=== PATIENT | female | born 1975 | race Caucasian/White ===

== ENCOUNTER 2023-06-13 08:28 | Outpatient (REF) | payer OTHER, SELFPAY ==
[2023-06-13 10:54] LABS: MANUAL DIFF FLAG NO
[2023-06-13 11:01] LABS: Basophils Percent Auto 0.7 % (0-2); Eosinophils Absolute Auto 0.2 X10*3/uL (0.0-0.4); Hematocrit 44.4 % (37.0-47.0); Hemoglobin 14.9 g/dl (12.0-16.0); Imm Gran Abs Auto 0.02 X10*3/uL (0.00-0.03); Imm Gran Pct Auto 0.4 % (0.0-0.4); Lymphocytes Absolute Auto 1.7 X10*3/uL (1.2-4.9); Lymphocytes Percent Auto 29.1 % (20-40); Mean Corpuscular HGB Conc 33.6 g/dl (31.0-35.0); Mean Corpuscular Hemoglobin 29.9 pg (27.0-33.0); Mean Corpuscular Volume 89.2 fL (80.0-98.0); Mean Platelet Volume 10.6 fL (9.4-12.3); Monocytes Absolute Auto 0.3 X10*3/uL (0.1-1.2); Monocytes Percent Auto 5.8 % (2-11); Neutrophils Absolute Auto 3.5 x10*3/uL (2.0-8.3); Platelet Count 246 X10*3/uL (160-400); Red Blood Count 4.98 X10*6/uL (4.20-5.50); Red Cell Distribution Width 11.9 % (11.0-16.0); White Blood Count 5.7 X10*3/uL (4.8-10.8)
[2023-06-13 11:07] LABS: Estimated Average Glucose 103 mg/dL; Hemoglobin A1c % 5.2 %
[2023-06-13 11:33] LABS: Alanine Aminotransferase 16 U/L (0-31); Anion Gap 12 (12-20); Aspartate Amino Transferase 13 U/L (5-31); Blood Urea Nitrogen 13 mg/dL (9-16); Calcium 9.3 mg/dL (8.4-10.2); Carbon Dioxide 19 mmol/L (22-29); Chloride 112 mmol/L (96-108); Cholesterol 185 mg/dL; Estimated Glomerular Filt Rate > 60; Glucose Random 110 mg/dL (60-115); HDL Cholesterol 41 mg/dL; LDL Cholesterol Calculated 122 mg/dl; Potassium 3.8 mmol/L (3.3-5.1); Sodium 139 mmol/L (135-145); Triglycerides 110 mg/dL
[2023-06-13 11:49] LABS: Free T4 (Free Thyroxine) 0.76 ng/dL (0.71-1.85); Thyroid Stimulating Hormone 2.37 uIU/mL (0.32-4.0)
== END 2023-06-13 08:29 | disposition home or self-care (01) ==
LOC: HO.10HDL 08:28
PROVIDERS: Visit Provider Nurse Practitioner
DX: Z00.00 Encounter for general adult medical examination without abnormal findings (principal); G93.2 Benign intracranial hypertension; E66.01 Morbid (severe) obesity due to excess calories; R53.82 Chronic fatigue, unspecified
CPT/HCPCS: 36415; 80048; 80061; 83036; 84439; 84443; 84450; 84460; 85025

== ENCOUNTER → 2023-09-29 08:00 | Outpatient (BNV) | payer OTHER, SELFPAY | PROVIDERS: PCP Nurse Practitioner; Visit Provider Radiology Diagnostic Radiology | DX: Z12.31 Encounter for screening mammogram for malignant neoplasm of breast (principal) | CPT/HCPCS: 77063; 77067 ==

== ENCOUNTER 2023-09-29 08:03 | Outpatient (REF) | payer OTHER, SELFPAY | END 2023-09-29 08:04 | disposition home or self-care (01) | LOC: HO.MAMMO 08:03 | PROVIDERS: PCP Nurse Practitioner; Visit Provider Nurse Practitioner | DX: Z12.31 Encounter for screening mammogram for malignant neoplasm of breast (principal) | CPT/HCPCS: 77063; 77067 ==

== ENCOUNTER 2023-10-13 12:19 | Outpatient (AMB) | payer OTHER, SELFPAY ==
--- NOTE | 2023-10-13 12:20 | MHC.OFFVIS ---
Intake Intake Visit Reasons: right bicrp inj HPI right bicrp inj HPI Details 47-year-old female who presents today to the office for a right bicipital tendon injection. Denies any recent cough, cold, infection, fever or other significant changes in medical history since last office visit. Review of Systems Const All systems reviewed & are unremarkable except as noted in HPI and below Physical Exam General: Appears afebrile. Alert and oriented. Mood and affect appropriate. Follows and participates in conversation appropriately. Respiratory effort is unlabored. Able to transition from sit to stand unassisted. Ambulates with bilaterally normal heel strike and toe off. Office Procedures Joint Injection/Drain Joint Injection/Drain Details: Right Bicipital tendon injection, ultrasound guided Primary Site: right shoulder Prep: site was prepped using sterile technique Injected: Kenalog (25 mg), with 3 mL of (0.25% ropivacaine) and other (bicipital tendons) Approach Used: anterior (under ultrasound guidance) Procedure: The patient tolerated the procedure well Coding Details: An ultrasound image of the injection was taken and stored in the permanent record. 09926 - Bicipital Groove Injection (right, ultrasound guided) Procedure code (CPT) selection complete Results Reviewed Results Reviewed: No imaging is available for review. Assessment & Plan Assessment & Plan (1) Bicipital tendinitis: Code(s): M75.20 - Bicipital tendinitis, unspecified shoulder Plan Patient is status post right bicipital tendon injection, ultrasound guided. Patient tolerated procedure well and was discharged home in stable condition with discharge instructions. All questions were answered. Follow-up as needed. Scribed for Dr. Liriano by Leonid Lee medical instrument cable fabricator, on 10/13/2023. I, Dr. Liriano, have personally reviewed and agree with the information entered by the scribe. Coding Level of Care Code Procedure Only Diagnoses Bicipital tendinitis M75.20 CPT Codes Coding - Joint 1: 52060 - Bicipital Groove Injection ([id number])
== END 2023-10-13 12:32 | disposition home or self-care (01) ==
LOC: HO.PMC 12:19
PROVIDERS: PCP Nurse Practitioner; Visit Provider Internal Medicine
DX: M75.21 Bicipital tendinitis, right shoulder (principal)
CPT/HCPCS: 20550

== ENCOUNTER → 2023-10-13 12:19 | Outpatient (BNVA) | payer OTHER, SELFPAY | PROVIDERS: PCP Nurse Practitioner; Visit Provider Internal Medicine | DX: M75.21 Bicipital tendinitis, right shoulder (principal) | CPT/HCPCS: 20550; J0665; J3301 ==

== ENCOUNTER 2024-03-06 12:47 | Outpatient (REF) | payer OTHER, SELFPAY ==
--- NOTE | ~2024-03-06 | US_ITS ---
EXAMINATION: US LOWER EXTREMITY VENOUS (REFLUX EXAM), BILATERAL CLINICAL INDICATION: Chronic venous insufficiency with lower extremity varicose veins with pain and inflammation COMPARISON: None. TECHNIQUE: Color flow triplex imaging and compression Doppler was performed to evaluate both the deep and the superficial systems bilaterally. To evaluate the superficial system, the examination was performed in the upright position. Color-flow Doppler ultrasound and compression ultrasound were utilized. In addition, maneuvers were utilized to demonstrate reflux. FINDINGS: 1. DEEP VENOUS ULTRASOUND OF THE RIGHT LOWER EXTREMITY: Common Femoral Vein: Compressible, normal respiratory variation and augmented flow. Femoral Vein: Compressible, normal color flow and augmentation. Popliteal Vein: Compressible, normal augmentation. Deep Reflux: There is no evidence of reflux in the deep system in either the common femoral vein, superficial femoral or the popliteal vein. There is no evidence of a Morin's cyst. 2. SUPERFICIAL ULTRASOUND WITH DOPPLER OF RIGHT LOWER EXTREMITY: GREAT SAPHENOUS VEIN: Saphenofemoral Junction: 0.7 cm; Reflux: 1632 ms Proximal Thigh: 0.6 cm; Reflux: 1995 ms Mid Thigh: 0.6 cm; Reflux: 1604 ms Above Knee: 0.6 cm; Reflux: 1720 ms At Knee: 0.5 cm; Reflux: 1984 ms Below Knee: 1.0 cm; Reflux: 1592 ms Mid Calf: 0.4 cm; Reflux: 1564 ms Ankle: 0.3 cm; Reflux: 924 ms DUPLICATED MEDIAL GREAT SAPHENOUS VEIN: Diameter: None imaged Reflux: NA DUPLICATED LATERAL GREAT SAPHENOUS VEIN: Diameter: 0.3 cm Reflux: None SMALL SAPHENOUS VEIN: Saphenopopliteal Junction: 0.3 cm; Reflux: 0 ms Proximal: 0.2 cm; Reflux: 0 ms Distal: 0.3 cm; Reflux: 0 ms VEIN OF GIACOMINI: Size: NA Reflux: NA PERFORATORS: Location: Mid calf Size: 0.3 cm Reflux: 1744 ms VARICOSITIES: Location: Proximal thigh and proximal calf Size: 0.3 to 0.4 cm Reflux: Ranging from 1316 ms to 1516 ms 3. DEEP VENOUS ULTRASOUND OF THE LEFT LOWER EXTREMITY: Common Femoral Vein: Compressible, normal respiratory variation and augmented flow. Femoral Vein: Compressible, normal color flow and augmentation. Popliteal Vein: Compressible, normal augmentation. Deep Reflux: There is no evidence of reflux in the deep system in either the common femoral vein, superficial femoral or the popliteal vein. There is no evidence of a Morin's cyst. 4. SUPERFICIAL ULTRASOUND WITH DOPPLER OF LEFT LOWER EXTREMITY: GREAT SAPHENOUS VEIN: Saphenofemoral Junction: 0.9 cm; Reflux: 0 ms Proximal Thigh: 0.5 cm; Reflux: 0 ms Mid Thigh: 0.5 cm; Reflux: 1508 ms Above Knee: 0.5 cm; Reflux: 1660 ms At Knee: 0.5 cm; Reflux: 0 ms Below Knee: 0.4 cm; Reflux: 1560 ms Mid Calf: 0.3 cm; Reflux: 1556 ms Ankle: 0.4 cm; Reflux: 0 ms DUPLICATED MEDIAL GREAT SAPHENOUS VEIN: Diameter: None imaged Reflux: NA DUPLICATED LATERAL GREAT SAPHENOUS VEIN: Diameter: 0.3 cm Reflux: None SMALL SAPHENOUS VEIN: Saphenopopliteal Junction: 0.5 cm; Reflux: 0 ms Proximal: 0.4 cm; Reflux: 0 ms Distal: 0.3 cm; Reflux: 0 ms VEIN OF GIACOMINI: Size: NA Reflux: NA PERFORATORS: Location: Proximal and mid calf Size: 0.3 to 0.4 cm Reflux: None VARICOSITIES: Location: Distal thigh, knee and proximal calf off the great saphenous vein Size: 0.3 to 0.8 cm Reflux: Ranging from 1508 ms to 2196 ms US/US venous duplex LE BI IMPRESSION: Right: Severe reflux throughout the right great saphenous vein with multiple branching varicosities as described above Left: Severe reflux within the great saphenous vein with multiple branching varicosities as described above
== END 2024-03-06 12:48 | disposition home or self-care (01) ==
LOC: HO.US 12:47
PROVIDERS: PCP Nurse Practitioner; Visit Provider Nurse Practitioner Family
DX: I83.93 Asymptomatic varicose veins of bilateral lower extremities (principal)
CPT/HCPCS: 93970

== ENCOUNTER 2024-03-28 13:16 | Outpatient (AMB) | payer OTHER, SELFPAY ==
--- NOTE | 2024-03-28 13:20 | A.OFFVIS_ITS ---
Intake Visit Reasons: Varicose veins of lower extremity with inflammation, bilateral Intake Note: Patient presents for bilateral varicose veins, worse on the left. Has minimal swelling. No pain in either leg. Accompanied by: Self / Same As Patient Allergies No Known Allergies Allergy (Verified 03/28/24 13:21) HPI Comments Details: Very pleasant 48-year-old female patient presents for painful varicose veins. Complaints include pain over varicosities, swelling of lower extremities, cramping, fatigue, and heaviness of the lower extremities. It has been affecting there daily activities including . It is noted more so in left leg. She has this left medial thigh varicosity which has been a source of pain and discomfort for her. Patient denies any previous venous surgery or injections. Patient denies any history of DVT/ PE. Patient denies any history of phlebitis. Trial of compression includes - prescription compression They now present for vascular evaluation regarding their varicose veins. Review of Systems Const Reports as per HPI ENT Reports no additional complaints Card Denies chest pain, Denies chest pain at rest and Denies chest pain with activity Resp Denies chest congestion and Denies cough GI Reports no additional complaints Musc Details: pain over varicosities, aching of lower extremities, swelling, cramping, heav iness and tiredness, itching Denies abnormal gait Skin/Breast Reports pruritus and Denies wounds Neuro Reports no additional complaints and Denies abnormal gait Psych Denies no additional complaints Physical Exam Const General: cooperative, healthy appearing and comfortable Orientation/consciousness: oriented to person, oriented to place and oriented to time Neck Carotids: no bruits Chest Chest palpation & inspection: normal inspection of the chest and normal palpation of entire chest wall Resp Effort & Inspection: normal respiratory effort and able to speak in complete sentences Cardio Rate: regular rate Heart sounds: S1 normal heart sound present and S2 normal heart sound present Peripheral pulses: Peripheral pulses 2+ throughout GI Inspection: Yes normal to inspection Skin Other: +2 edema, large rope-like varicosities greater than 4 mm left medial thigh CEAP Classification C4 - skin color changes Ep - Etiology Primary As - superficial veins P - reflux General skin exam: dry skin Neuro General: oriented to person, oriented to place and oriented to time Extrem Right lower extremity: full ROM, normal capillary refill and edema Left lower extremity: full ROM, normal capillary refill and edema Psych Mental Status: mental status grossly normal Results Reviewed Results Reviewed: Brief summary of venous insufficiency testing is as follows: right great saphenous vein: Positive right small saphenous vein: negative right accessory vein: none present left great saphenous vein: Positive left small saphenous vein: negative left accessory vein: none present Please note there is no evidence of any venous aneurysms or significant tortuosity Assessment & Plan Assessment & Plan (1) Varicose veins of both lower extremities with inflammation: Code(s): I83.11 - Varicose veins of right lower extremity with inflammation; I83.12 - V aricose veins of left lower extremity with inflammation Plan: This patient has varicose veins with inflammation. They continue to be a source of discomfort for the patient. The patient has tried conservative treatment with compression, leg elevation and exercise program for over 3 months time. They have been compliant with all treatment. This has provided minimal relief for the patient. I do not anticipate this course of treatment will alter the underlying etiology. The patient has been scheduled for lower extremity venous treatment inclusive of --- left great saphenous vein Cyanoacralate ablation. Risks, benefits, and complications of this procedure has been discussed in detail with the patient including but not limited to bleeding, infection, and the development of a DVT. The patient has demonstrated a clear understanding and has consented. We will schedule the patient as soon as possible. Thank you for allowing us to participate in this patient's care. If there are any questions or concerns please do not hesitate to contact us. Medications: Discontinued acyclovir Discontinued Reason: Patient no longer taking 800 mg PO BID 30 tabs 1RF benzonatate Discontinued Reason: Patient no longer taking 100 mg PO BID 14 days PRN 28 caps 0RF cough azithromycin Discontinued Reason: Patient no longer taking 500 mg PO DAILY 14 days 14 tabs 0RF prednisone Discontinued Reason: Patient Refused 20 mg PO BID 5 days 10 tabs 1RF Coding Level of Care Code New Pt Level 4 (27018) Diagnoses Varicose veins of both lower extremities with inflammation I83.11; I83.12 Varicose Veins Reports pruritus
== END 2024-03-28 13:54 | disposition home or self-care (01) ==
PROVIDERS: PCP Nurse Practitioner; Visit Provider Surgery Vascular Surgery
DX: I83.11 Varicose veins of right lower extremity with inflammation (principal); I83.12 Varicose veins of left lower extremity with inflammation
CPT/HCPCS: 99204

== ENCOUNTER → 2024-03-28 13:16 | Outpatient (BNVA) | payer OTHER, SELFPAY | PROVIDERS: PCP Nurse Practitioner; Visit Provider Surgery Vascular Surgery ==

== ENCOUNTER 2024-04-10 12:58 | Outpatient (AMB) | payer OTHER, SELFPAY ==
--- NOTE | 2024-04-10 13:14 | MHC.OFFVIS ---
Intake Visit Reasons: Left shoulder injection Allergies No Known Allergies Allergy (Verified 03/28/24 13:21) HPI HPI Left shoulder injection: Details: 48-year-old female who presents to the office for left shoulder injection She presents with the left arm pain, which is similar to the one that she had on the right few months ago. She is interested in a bicipital tendon injection on the left side. Denies any recent cough, cold, infection, fever or other significant changes in medical history since last office visit. Review of Systems Const All systems reviewed & are unremarkable except as noted in HPI and below Physical Exam General: Appears afebrile. Alert and oriented. Mood and affect appropriate. Follows and participates in conversation appropriately. Respiratory effort is unlabored. Able to transition from sit to stand unassisted. Pain is worse with forearm supination and flexion of the arm. Office Procedures Joint Injection/Drain Joint Injection/Drain Primary Site: left shoulder (bicipital tendon) Prep: site was prepped using sterile technique Injected: 40 mg of, Kenalog, with 3 mL of (0.5% ropivacaine) and other (bicipital groove) Approach Used: anterior (under ultrasound guidance) Procedure: The patient tolerated the procedure well Coding 32941 - Bicipital Groove Injection Procedure code (CPT) selection complete Results Reviewed Results Reviewed: No imaging is available for review Assessment & Plan Assessment & Plan (1) Bicipital tendinitis: Code(s): M75.20 - Bicipital tendinitis, unspecified shoulder Category: Medical Plan Patient is status post bicipital groove injection. Patient tolerated procedure well and was discharged home in stable condition with discharge instructions. All questions were answered. Scribed for Dr. Liriano by Marbella Kevin health care / medical job titles, on 04/10/2024. I, Dr. Liriano, have personally reviewed and agree with the information entered by the scribe. Coding Level of Care Code Est Pt Level 3 (75115) Diagnoses Bicipital tendinitis M75.20 CPT Codes Coding - Joint 1: 38445 - Bicipital Groove Injection ([id number])
== END 2024-04-10 13:10 | disposition home or self-care (01) ==
LOC: HO.PMC 12:58
PROVIDERS: PCP Nurse Practitioner; Visit Provider Internal Medicine
DX: M75.22 Bicipital tendinitis, left shoulder (principal)
CPT/HCPCS: 20550

== ENCOUNTER → 2024-04-10 12:58 | Outpatient (BNVA) | payer OTHER, SELFPAY | PROVIDERS: PCP Nurse Practitioner; Visit Provider Internal Medicine | DX: M75.22 Bicipital tendinitis, left shoulder (principal) | CPT/HCPCS: 20550; J2795; J3301 ==

== ENCOUNTER 2024-04-26 12:32 | Outpatient (AMB) | payer OTHER, SELFPAY ==
--- NOTE | 2024-04-26 13:27 | MHC.OFFVIS ---
Intake Visit Reasons: Left GSV Venaseal Accompanied by: Self / Same As Patient Allergies No Known Allergies Allergy (Verified 04/26/24 13:27) Office Procedures Vascular Office Procedure Details Details: Diagnosis: Left Leg varicose veins with inflammation Procedure: Endovenous Ablation of the left Great Saphenous Vein with VenaSeal Closure System Anesthesia: Local infiltration 5 cc, Estimated Blood Loss: min Specimen: none Duplex ultrasound was used to map out the insufficient saphenous vein, and access was determined and marked on the overlying skin. The depth and diameter of the vein(s) to be treated was documented. The patient was placed supine on the procedure table and the leg was prepped and draped using sterile technique. Ultasound guidance was again used to localize the access site. 1% lidocaine was injected as a local anesthetic in the subcutaneous tissues at the target location in the GSV in the lower leg. Using ultrasound guidance, access was gained at this location with the 19 gauge thin walled access needle and followed by introduction of a short guidewire, location confirmed with ultrasound. A small, 3 mm incision was made at the access site to allow for introduction and placement of the 7 Fr x7cm introducer/dilator. The dilator and guidewire were removed. The 0.035 guidewire from the VenaSeal kit was then introduced and positioned at the saphenofemoral junction using ultrasound guidance. The 80 cm 7 Fr introducer sheath/dilator was positioned 5cm from the saphenofemoral junction. The guidewire and dilator were removed, and the remaining sheath was flushed with sterile saline, with the syringe remaining in place prior to the next steps. The cyanoacrylate adhesive was precisely primed into the 5 F delivery catheter and this catheter/syringe combination was attached within the dispenser gun. This assembly was introduced through the 7F sheath and positioned 5 cm caudal of the saphenofemoral junction under ultrasound guidance. The steps from the IFU were followed for dispensing amounts, locations and compression times, 2 aliquots proximally with 3 minutes of compression, and 1 aliquot every 3 cm distally with 30 sec of compression along the course of the vessel. Following the last injection and compression sequence, the catheter and introducer sheath were pulled out from the access site. Hemostasis was achieved with manual compression and an adhesive bandage was applied to the incision. Ultrasound confirmed complete coaptation and closure of the treated segments of the GSV, and the absence of any DVT at the saphenofemoral junction. Treatment time was approximately 6 minutes and the vein length treated was 40 cm. The drapes were removed and the patient cleaned and prepared for discharge. Post op ultrasound check is scheduled for 48-72 hours and the patient was given written post-op instructions. 29424 - Endoven Ther Chem Adhes 1st All charges added?: Procedure code (CPT) selection complete Assessment & Plan Assessment & Plan (1) Varicose veins of left lower extremity with inflammation: Comment: 04/26/2024 - left great saphenous vein Cyanoacralate ablation Code(s): I83.12 - Varicose veins of left lower extremity with inflammation Category: Medical Plan: See op note Coding Level of Care Code Procedure Only Diagnoses Varicose veins of left lower extremity with inflammation I83.12 CPT Codes Details - Vascular 3: 99389 - Endoven Ther Chem Adhes 1st ([id number])
== END 2024-04-26 13:23 | disposition home or self-care (01) ==
PROVIDERS: PCP Nurse Practitioner; Visit Provider Surgery Vascular Surgery
DX: I83.12 Varicose veins of left lower extremity with inflammation (principal)
CPT/HCPCS: 36482

== ENCOUNTER → 2024-04-26 12:32 | Outpatient (BNVA) | payer OTHER, SELFPAY | PROVIDERS: PCP Nurse Practitioner; Visit Provider Surgery Vascular Surgery | DX: I83.12 Varicose veins of left lower extremity with inflammation (principal) | CPT/HCPCS: 36482 ==

== ENCOUNTER 2024-04-29 11:30 | Outpatient (REF) | payer OTHER, SELFPAY ==
--- NOTE | ~2024-04-29 | US_ITS ---
EXAMINATION: TRIPLEX SCANNING OF LEFT LOWER EXTREMITY; SUPERFICIAL ULTRASOUND WITH DOPPLER OF LEFT LOWER EXTREMITY CLINICAL INFORMATION: Status post Venaseal of the left great saphenous vein COMPARISON: Ultrasound from 03/06/2024. TECHNIQUE: Color flow triplex imaging and compression Doppler were performed as well as superficial ultrasound with Doppler. FINDINGS: LEFT LOWER EXTREMITY DEEP VENOUS SYSTEM: Respiratory variation, normal compression and augmented flow are noted throughout the lower extremity. The visualized common femoral vein, femoral vein, profunda femoral vein, popliteal vein and the calf veins show no evidence of deep venous thrombosis. There is no evidence of Morin's cyst. SUPERFICIAL VENOUS SYSTEM: The great saphenous vein is occluded from the access site to 7.1 cm before the saphenofemoral junction. There is no extension of thrombus into the deep system. US/US venous duplex LE LT IMPRESSION: 1. No evidence of DVT. 2. Excellent appearance status post ablation of the left great saphenous vein.
== END 2024-04-29 11:31 | disposition home or self-care (01) ==
LOC: HO.HMGCX 11:30
PROVIDERS: PCP Nurse Practitioner; Visit Provider Surgery Vascular Surgery
DX: M79.605 Pain in left leg (principal)
CPT/HCPCS: 93971

== ENCOUNTER 2024-05-09 13:44 | Outpatient (AMB) | payer OTHER, SELFPAY ==
--- NOTE | 2024-05-09 13:55 | A.OFFVIS_ITS ---
Intake Visit Reasons: 2 week follow up Left GSV Venaseal 04/26/24 Intake Note: 2 week follow up Left GSV Venaseal 04/26/24, pt states some itching post- procedurally and some discomfort after the ultrasound. Right LE has swelling, discomfort and fatigue Accompanied by: Self / Same As Patient Allergies No Known Allergies Allergy (Verified 05/09/24 14:01) HPI HPI 2 week follow up Left GSV Venaseal 04/26/24: Details: Very pleasant 48-year-old female presents for follow-up status post left great saphenous vein Cyanoacralate ablation. In general appears to be doing relatively well. She did have some mild postprocedure itching. She now presents for routine postprocedure follow-up. Of note postprocedure ultrasound was negative for DVT. She is concerned about her right lower extremity which has also been a source discomfort for her. Review of Systems Const Reports as per HPI ENT Reports no additional complaints Card Denies chest pain, Denies chest pain at rest and Denies chest pain with activity Resp Denies chest congestion and Denies cough GI Reports no additional complaints Musc Details: pain over varicosities, aching of lower extremities, swelling, cramping, heaviness and tiredness, itching Denies abnormal gait Skin/Breast Reports pruritus and Denies wounds Neuro Reports no additional complaints and Denies abnormal gait Psych Denies no additional complaints Physical Exam Const General: cooperative, healthy appearing and comfortable Orientation/consciousness: oriented to person, oriented to place and oriented to time Neck Carotids: no bruits Chest Chest palpation & inspection: normal inspection of the chest and normal palpatio n of entire chest wall Resp Effort & Inspection: normal respiratory effort and able to speak in complete sentences Cardio Rate: regular rate Heart sounds: S1 normal heart sound present and S2 normal heart sound present Peripheral pulses: Peripheral pulses 2+ throughout GI Inspection: Yes normal to inspection Skin Other: +2 edema, CEAP Classification C4 - skin color changes Ep - Etiology Primary As - superficial veins P - reflux General skin exam: dry skin Neuro General: oriented to person, oriented to place and oriented to time Extrem Right lower extremity: full ROM, normal capillary refill and edema Left lower extremity: full ROM, normal capillary refill and edema Psych Mental Status: mental status grossly normal Results Reviewed Results Reviewed: Brief summary of venous insufficiency testing is as follows: right great saphenous vein: Positive right small saphenous vein: negative right accessory vein: none present left great saphenous vein: Ablated left small saphenous vein: negative left accessory vein: none present Please note there is no evidence of any venous aneurysms or significant tortuosity Assessment & Plan Assessment & Plan (1) Varicose veins of left lower extremity with inflammation: Comment: 04/26/2024 - left great saphenous vein Cyanoacralate ablation Code(s): I83.12 - Varicose veins of left lower extremity with inflammation Category: Medical Plan: Did well. Mild reaction so will treat right side with Radiofrequency ablation (2) Varicose veins of right lower extremity with inflammation: Code(s): I83.11 - Varicose veins of right lower extremity with inflammation Category: Medical Plan: This patient has varicose veins with inflammation. They continue to be a source of discomfort for the patient. The patient has tried conservative treatment with compression, leg elevation and exercise program for over 3 months time. They have been compliant with all treatment. This has provided minimal relief for the patient. I do not anticipate this course of treatment will alter the underlying etiology. The patient has been scheduled for lower extremity venous treatment inclusive of --- right great saphenous vein radiofrequency ablation. Risks, benefits, and complications of this procedure has been discussed in detail with the patient including but not limited to bleeding, infection, and the development of a DVT. The patient has demonstrated a clear understanding and has consented. We will schedule the patient as soon as possible. Thank you for allowing us to participate in this patient's care. If there are any questions or concerns please do not hesitate to contact us. Coding Level of Care Code Est Pt Level 4 (28780) Diagnoses Varicose veins of left lower extremity with inflammation I83.12 Varicose veins of right lower extremity with inflammation I83.11
== END 2024-05-09 14:35 | disposition home or self-care (01) ==
PROVIDERS: PCP Nurse Practitioner; Visit Provider Surgery Vascular Surgery
DX: I83.12 Varicose veins of left lower extremity with inflammation (principal); I83.11 Varicose veins of right lower extremity with inflammation
CPT/HCPCS: 99214

== ENCOUNTER → 2024-05-09 13:44 | Outpatient (BNVA) | payer OTHER, SELFPAY | PROVIDERS: PCP Nurse Practitioner; Visit Provider Surgery Vascular Surgery ==

== ENCOUNTER 2024-07-05 12:19 | Outpatient (AMB) | payer OTHER, SELFPAY ==
--- NOTE | 2024-07-05 12:56 | MHC.OFFVIS ---
Intake Visit Reasons: Right GSV RFA Allergies No Known Allergies Allergy (Verified 07/05/24 12:57) Office Procedures Vascular Office Procedure Details Details: Diagnosis: Varicose veins with inflammation of right leg Procedure: Endovenous radiofrequency ablation of the right great saphenous vein(s) of the lower extremity. Anesthesia: Local infiltration 5 cc, Tumescent 450 cc. Estimated Blood Loss: minimal Specimen: Varicose veins The patient was transferred to the procedure suite and the insufficient saphenous vein was mapped by ultrasound and diagrammed on the overlying skin. The depth and diameter of the vein(s) to be treated was documented. The varicose tributary veins and suitable access sites were identified and mapped as well. The patient was then positioned supine on the procedure table. The affected limb was prepped and draped in the usual sterile fashion. The RF catheter was placed on the sterile field, flushed and wiped down, prepared, and connected by a sterile cable. The patient was placed in supine position and local anesthesia was instilled in the skin overlying the access site. A skin incision was made overlying the identified and mapped great saphenous vein entry site. The vein was accessed using ultrasound guidance and the Seldinger technique, a guide wire was introduced through the needle, which was then exchanged over the guide wire for a 6F sheath, which was secured in place. The guide wire was removed and the sheath was flushed. The RF catheter was placed into the vein through the sheath and preferentially, imaging was used to place the catheter tip just inferior to the superficial epigastric vein to preserve normal physiological flow in that vein. Additionally, it was confirmed by ultrasound guidance that the catheter tip was also placed a minimum of 1.5cm distal to the saphenofemoral junction. After the RF catheter position was verified by ultrasound, tumescent anesthesia was infiltrated, under ultrasound guidance, precisely into the perivenous compartment along the entire length of vein from the entry site to the saphenofemoral junction until a halo of fluid was noted around the vein. The patient was then placed in supine position to further exsanguinate the superficial venous system. After RF catheter position was again confirmed with ultrasound imaging, and under direct external compression along the length of the heating element, RF energy was applied. The vein was segmentally ablated by heating a 8 cm segment and then indexing the catheter forward by 7.5 cm until the treatment length is completed. Device temperature was maintained at 120 plus or minus 5 degrees C with an initial power level of 40W dropping to below 20W for each treatment. Total vein length treated 40 cm Total cycles of RF 7. Repeat ultrasound of the saphenous vein was performed, confirming successful treatment. The catheter and sheath were withdrawn and hemostasis established with direct pressure. After assuring hemostasis, the skin incision over the saphenous vein was closed with a bandage and a compression wrap, and/ or graduated compression stocking was applied from the level of the foot to the most proximal level of the thigh. 02096 - Endovenous RF, 1st Vein All charges added?: Procedure code (CPT) selection complete Assessment & Plan Assessment & Plan (1) Varicose veins of right lower extremity with inflammation: Comment: 07/05/2024 - right great saphenous vein radiofrequency ablation Code(s): I83.11 - Varicose veins of right lower extremity with inflammation Category: Medical Plan: See op note Coding Level of Care Code Procedure Only Diagnoses Varicose veins of right lower extremity with inflammation I83.11 CPT Codes Details - Vascular 1: 88766 - Endovenous RF, 1st Vein ([id number])
== END 2024-07-05 14:02 | disposition home or self-care (01) ==
PROVIDERS: PCP Nurse Practitioner; Visit Provider Surgery Vascular Surgery
DX: I83.11 Varicose veins of right lower extremity with inflammation (principal)
CPT/HCPCS: 36475

== ENCOUNTER → 2024-07-05 12:19 | Outpatient (BNVA) | payer OTHER, SELFPAY | PROVIDERS: PCP Nurse Practitioner; Visit Provider Surgery Vascular Surgery | DX: I83.11 Varicose veins of right lower extremity with inflammation (principal) | CPT/HCPCS: 36475 ==

== ENCOUNTER 2024-07-08 14:57 | Outpatient (REF) | payer OTHER, SELFPAY ==
--- NOTE | ~2024-07-08 | US_ITS ---
EXAMINATION: US VENOUS ULTRASOUND WITH DOPPLER LOWER EXTREMITY, RIGHT CLINICAL INFORMATION: M79.604 - Pain in right leg. Please R/O DVT Right LE s/p Right GSV RFA 07/05/2024. Please schedule per protocol on 07/05/24 COMPARISON: 03/06/2024. TECHNIQUE: Ultrasound of the deep veins is performed from the hip to the calf with compression sonography and color and pulse Doppler assessment. Spectral analysis with color-flow imaging is performed. FINDINGS: There is normal venous compression and respiratory variation and augmented flow. The visualized common femoral vein, superficial femoral vein, profunda femoral vein, popliteal vein, and the trifurcation region shows no evidence of deep venous thrombosis. Postablation changes are seen in the great saphenous vein up to 7.5 cm from the SFJ. US/US venous duplex LE RT IMPRESSION: No DVT demonstrated in the right lower extremity. Postablation changes great saphenous vein as above. Electronically signed by: Reid Szymanski MD 07/10/2024 11:56 AM EDT
== END 2024-07-08 14:58 | disposition home or self-care (01) ==
LOC: HO.US 14:57
PROVIDERS: PCP Nurse Practitioner; Visit Provider Surgery Vascular Surgery
DX: M79.604 Pain in right leg (principal)
CPT/HCPCS: 93971

== ENCOUNTER 2025-02-27 14:57 | Outpatient (AMB) | payer OTHER, SELFPAY ==
[2025-02-27 14:57] VITALS: BP 138/70; PULSE 84; O2SAT 98
--- NOTE | 2025-02-27 14:57 | MHC.OFFVIS ---
Vital Signs 02/27/25 14:57 Height 5 ft 10 in BP 138/70 Blood Pressure Location Lt brachial Position Sitting Pulse 84 Pulse Source Pulse Oximeter Pulse Oximetry (%) 98 Oxygen Delivery Method Room Air Intake Visit Reasons: headache Intake Note: Pain today 12/23 Acute Care Assistant Required: No Accompanied by: Self / Same As Patient Allergies No Known Allergies Allergy (Verified 02/27/25 14:58) HPI Comments Details: The patient is a 49-year-old female presenting with chronic headache management needs, specifically migraines and tension-type headaches. She reports a longstanding history, with onset during her teenage years. Her headaches, characterized by a pounding and throbbing quality, can occur with nausea and be influenced by stress, weather changes, or work-related factors. The migraines typically manifest in the frontal region and occasionally cause visual disturbances such as floaters and tunnel vision. She has a background of increased intracranial hypertension, managed with Diamox. Her treatment approach includes various medications, with DHE nasal spray reserved for unresponsive episodes. Her condition impacts her daily activities significantly, affecting her sleep, ADLs, work and living quality. Despite seeking past neurological interventions, including occipital nerve blocks and lumbar puncture. She is currently not under active Neurology consultation and has been seeing her PCP for headache management. - Onset: Since teenage years, worsening over the past one year - Quality: Pounding, throbbing, debilitating, crushing, aching, tight, squeezing, sharp - Primary Location: Frontal and occipital regions, with migraine primarily frontal and right side of head - Radiation: Right eye and right side of the head - Exacerbating Factors: Stress, bending over, weather changes, work-related interactions, dehydration, certain foods and alcohol - Relieving Factors: [id number] medications (Excedrin, ibuprofen, Tylenol), Imitrex, DHE nasal spray, Topamax, amitriptyline, magnesium, vitamin B complex, turmeric, Zofran or compazine for N/V with migraine episodes - Interference: Affects sleep, work, and family life significantly - Affect: Significant impact on work, sleep, and family and social life - Analgesia: Use of Excedrin, ibuprofen, magnesium, baclofen, Imitrex, Maxalt, DHE nasal spray; goal to control severity of headaches - Adverse Effects: Neuropathy with Diamox affecting hands and feet; no other adverse effects mentioned - Activities of Daily Living: Affected work, family, and social activities; requires time off work during severe episodes - Aberrant Drug Related Behaviors: None reported [facility] Medical History (Updated 02/27/25 @ 15:30 by SATYA Sanderson) Varicose veins of both lower extremities Intracranial hypertension Lumbar puncture headache Muscle spasms of neck Tension headache Migraine headache Review of Systems Const Details: - Neurological: Reports nausea with migraines, visual disturbances (floaters, tunnel vision) - Musculoskeletal: Denies weakness - General: Denies fever, chills, weight loss, recent infections All systems reviewed & are unremarkable except as noted in HPI and below Neuro Denies Abnormal speech present and Denies Sensory deficit (Neuro) Physical Exam Vital Signs: Last Vital Signs Pulse 84 02/27/25 14:57 BP 138/70 02/27/25 14:57 Pulse Ox 98 02/27/25 14:57 Oxygen Delivery Method Room Air 02/27/25 14:57 General: Appears afebrile. Alert and oriented. Mood and affect appropriate. Follows and participates in conversation appropriately. Respiratory effort is unlabored. No cough. No nasal discharge. Able to transition from sit to stand unassisted. Ambulates with bilaterally normal heel strike and toe off. Const Orientation/consciousness: patient oriented x3 Eyes General: appearance normal, both eyes and all related structures Pupils: Equal, round and reactive pupils present Neck Neck: Yes normal visual inspection, Yes full ROM, Yes no lymphadenopathy, Yes no meningeal signs, Yes supple, No anterior neck swelling and Yes no JVD Neuro General: patient oriented x3, moves all extremities, Normal light touch and pain sensation, no meningeal signs, no focal motor deficits, CN's II-XI intact bilaterally and deep tendon reflexes 2+ bilaterally Cranial nerves: Yes CN's II-XII intact bilaterally and Yes Equal, round and reactive pupils present Cognition (Neuro): normal cognition Speech: No Abnormal speech present Gait exam (Neuro): Normal gait present Motor exam (neuro): 5/5 motor strength present throughout Sensory Exam: No Sensory deficit (Neuro) Assessment & Plan Assessment & Plan (1) Migraine headache: Code(s): G43.909 - Migraine, unspecified, not intractable, without status migrainosus Category: Medical (2) Tension headache: Code(s): G44.209 - Tension-type headache, unspecified, not intractable Category: Medical (3) Intracranial hypertension: Code(s): G93.2 - Benign intracranial hypertension Category: Medical Plan For chronic migraine and tension-type headaches, continue current medications, including Excedrin, Imitrex, and Diamox, with an added DHE nasal spray for severe episodes. Adjust Diamox usage cautiously to mitigate neuropathic side effects. Emphasize lifestyle modifications around stress management, hydration, and sleep hygiene. Should conditions persist or worsen, consider a neurology referral for expert evaluation. At meantime, we will proceed with updating her MRI of brain and head for worsening migraine headaches and current management of intracranial HTN. Patient will start atenolol 12.5 mg daily for migraine prophylaxis. Side effects and precautions were discussed with patient. Refill sent for dihydroergotamine nasal spray for abortive (symptomatic) therapy of migraines. All questions and concerns have been answered and patient agreed with the plan. Follow up for MRI/medication review and sooner as needed. Patient was informed and verbally consented to the use of an ambient scribe for clinic note documentation during this visit. Orders: Orders MR head/brain w con Today G43.909 - Migraine, unspecified, not intractable, without status migrainosus, G44.209 - Tension-type headache, unspecified, not intractable, G93.2 - Benign intracranial hypertension Medications: New atenolol 12.5 mg (1/2 x 25 mg) PO DAILY 30 days 15 tabs 0RF migraine headache G43.909 - Migraine, unspecified, not intractable, without status migrainosus Changed From dihydroergotamine [id number] 2 sprays (1 mg) into each nostril (4 total sprays/2 mg) per 24 hrs OR 8 total sprays/4 mg per 7 days 1 spray intranasal Q15M 8 mL 4RF migraine headache G43.909 - Migraine, unspecified, not intractable, without status migrainosus To dihydroergotamine [id number] 2 sprays (1 mg) into each nostril (4 total sprays/2 mg) per 24 hrs OR 8 total sprays/4 mg per 7 days 1 spray intranasal Q15M PRN 8 mL 3RF migraine headache G43.909 - Migraine, unspecified, not intractable, without status migrainosus Coding Level of Care Code New Pt Level 4 (83362) Diagnoses Migraine headache G43.909 Tension headache G44.209 Intracranial hypertension G93.2
== END 2025-02-27 15:40 | disposition home or self-care (01) ==
LOC: HO.PMC 14:57
PROVIDERS: PCP Nurse Practitioner; Visit Provider Nurse Practitioner Family
DX: G43.909 Migraine, unspecified, not intractable, without status migrainosus (principal); G44.209 Tension-type headache, unspecified, not intractable; G93.2 Benign intracranial hypertension
CPT/HCPCS: 99204

== ENCOUNTER 2025-03-12 08:03 | Outpatient (REF) | payer OTHER, SELFPAY | END 2025-03-12 08:04 | disposition home or self-care (01) | LOC: HO.MRI 08:03 | PROVIDERS: Visit Provider Nurse Practitioner Family | DX: Z13.89 Encounter for screening for other disorder (principal) ==